=== PATIENT | male | born 1975 | race Caucasian/White ===

== ENCOUNTER 2018-01-01 15:07 | Inpatient (IN) | payer MEDICAID ==
[~2018-01-01] VITALS: Ht 170.2 cm; Wt 84.7 kg
[2018-01-01] MEDS ORDERED: SODIUM CHLORIDE FLUSH 10ML SYR IVF ONE (15:30)
[2018-01-01 15:54] LABS: BASOPHILS # (AUTO) 0.02 x10^3/uL (0-0.1); BASOPHILS % (AUTO) 0 % (0-1); EOSINOPHILS # (AUTO) 0.38 x10^3/uL (0-0.4); EOSINOPHILS % (AUTO) 4 % (1-7); LYMPHOCYTES # (AUTO) 2.55 x10^3/uL (1-3.4); LYMPHOCYTES % (AUTO) 24 % (22-44); MD NO; MEAN CORPUSCULAR HEMOGLOBIN 30.7 pg (27.5-34.5); MEAN CORPUSCULAR HGB CONC 34.6 g/dL (33.2-36.2); MEAN CORPUSCULAR VOLUME 88.9 fL (81-97); MEAN PLATELET VOLUME 7.8 fL (7.4-10.4); MONOCYTES # (AUTO) 0.74 x10^3/uL (0.2-0.8); MONOCYTES % (AUTO) 7 % (2-9); NEUTROPHILS # (AUTO) 7.12 x10^3/uL (1.8-6.8); NEUTROPHILS % (AUTO) 66 % (42-75); PLATELET COUNT 378 x10^3/uL (130-400); RED BLOOD COUNT 5.31 x10^6/uL (4.38-5.82); RED CELL DISTRIBUTION WIDTH 13.7 % (9.4-14.8)
[2018-01-01 16:05] LABS: ALBUMIN 4.1 g/dL (3.4-5.0); ANION GAP 8 mmol/L (5-15); CHLORIDE 106 mmol/L (98-107); CREATININE 1.14 mg/dL (0.7-1.3)
[2018-01-01 16:19] LABS: TROPONIN I 0.125 ng/mL (0.000-0.045)
[2018-01-01] MEDS ORDERED: ASPIRIN 81 MG TABLET CHEW ONE (16:31)
[2018-01-01] MEDS ORDERED: LISI40TA PO (16:43)
[2018-01-01] MEDS ORDERED: METOPROLOL 1 MG/ML, 5ML IVPush PRN (17:00)
[2018-01-01] MEDS ORDERED: ASPIRIN 81 MG TABLET CHEW PO ONE (17:00)
[2018-01-01] MEDS ORDERED: ONDANSETRON ODT 4 MG PO PRN (17:30)
[2018-01-01] MEDS ORDERED: ONDANSETRON 2MG/ML, 2ML IVPush PRN (17:30)
[2018-01-01] MEDS ORDERED: HYDROcodone/APAP 5/325 TABLET PO PRN (17:30)
[2018-01-01] MEDS ORDERED: POLYETHYLENE GLYCOL 17 GM PACKET PO PRN (17:30)
[2018-01-01] MEDS ORDERED: LABETALOL 5MG/ML, 20ML IVPush PRN (17:30)
[2018-01-01] MEDS ORDERED: METOPROLOL 1 MG/ML, 5ML ONE (17:52)
[2018-01-01] MEDS ORDERED: ASPIRIN 325 MG TABLET EC PO ONE (18:00)
[2018-01-01 18:09] LABS: FREE T4 (FREE THYROXINE) 1.03 ng/dL (0.76-1.46); THYROID STIMULATING HORMONE 1.82 mIU/L (0.358-3.740)
[2018-01-01] MEDS ORDERED: ENOXAPARIN 40 MG/0.4 ML ONE (19:28)
[2018-01-01] MEDS ORDERED: AMLODIPINE 5 MG TABLET ONE (19:28)
[2018-01-01] MEDS: AMLODIPINE 5 MG TABLET PO SCH (20:10)
[2018-01-01] MEDS: ENOXAPARIN 40 MG/0.4 ML SQ SCH (20:10)
[2018-01-01] MEDS: CHLORTHALIDONE 25 MG TABLET PO SCH (20:10)
[2018-01-01 21:19] VITALS: BP 173/113
[2018-01-01] MEDS: ENALAPRILAT 1.25 MG/ML, 2ML IVPush PRN ×2 (21:22→21:41)
[2018-01-01 21:35] VITALS: BP 170/105
[2018-01-01 21:36] VITALS: BP 170/105
[2018-01-01 22:15] VITALS: BP 171/96
[2018-01-01 23:19] LABS: TROPONIN I 0.121 ng/mL (0.000-0.045)
[2018-01-02 01:33] VITALS: BP 111/70
[2018-01-02] MEDS: ASPIRIN 81 MG TABLET EC PO SCH (04:59)
[2018-01-02 05:34] LABS: ALANINE AMINOTRANSFERASE 30 U/L (12-78); ALBUMIN 3.8 g/dL (3.4-5.0); ANION GAP 7 mmol/L (5-15); CALCIUM 8.9 mg/dL (8.5-10.1); CHLORIDE 107 mmol/L (98-107)
[2018-01-02 05:37] LABS: ALKALINE PHOSPHATASE 70 U/L (45-117); BILIRUBIN,TOTAL 0.5 mg/dL (0.2-1.0); TOTAL PROTEIN 8.1 g/dL (6.4-8.2)
[2018-01-02 07:18] LABS: TROPONIN I 0.113 ng/mL (0.000-0.045)
[2018-01-02 08:30] VITALS: BP 145/91
[2018-01-02] MEDS: SENNA/DOCUSATE TABLET PO SCH ×2 (09:00→10:54)
[2018-01-02] MEDS: CHLORTHALIDONE 25 MG TABLET PO SCH (10:54)
[2018-01-02] MEDS: AMLODIPINE 5 MG TABLET PO SCH ×2 (10:54→20:33)
[2018-01-02] MEDS: NICOTINE 7 MG/24 HR PATCH.TD24 TD SCH (10:55)
[2018-01-02] MEDS: LISINOPRIL 20 MG TABLET PO SCH (10:55)
[2018-01-02] MEDS ORDERED: REGADENOSON 0.4 MG/5 ML SYRINGE ONE (11:24)
[2018-01-02 15:54] VITALS: BP 166/101
[2018-01-02 17:09] VITALS: BP 162/97
[2018-01-02] MEDS: ENOXAPARIN 40 MG/0.4 ML SQ SCH (18:05)
[2018-01-02 18:42] VITALS: BP 167/95
[2018-01-03 04:00] VITALS: BP 129/92
[2018-01-03] MEDS: ASPIRIN 81 MG TABLET EC PO SCH (05:13)
[2018-01-03 05:21] LABS: ANION GAP 9 mmol/L (5-15); CALCIUM 8.9 mg/dL (8.5-10.1); CHLORIDE 104 mmol/L (98-107); CREATININE 1.11 mg/dL (0.7-1.3)
[2018-01-03 05:28] LABS: BASOPHILS # (AUTO) 0.05 x10^3/uL (0-0.1); BASOPHILS % (AUTO) 1 % (0-1); EOSINOPHILS # (AUTO) 0.54 x10^3/uL (0-0.4); EOSINOPHILS % (AUTO) 6 % (1-7); LYMPHOCYTES # (AUTO) 3.05 x10^3/uL (1-3.4); LYMPHOCYTES % (AUTO) 31 % (22-44); MD NO; MEAN CORPUSCULAR HEMOGLOBIN 30.5 pg (27.5-34.5); MEAN CORPUSCULAR VOLUME 89.7 fL (81-97); MONOCYTES # (AUTO) 0.94 x10^3/uL (0.2-0.8); MONOCYTES % (AUTO) 10 % (2-9); NEUTROPHILS % (AUTO) 54 % (42-75); PLATELET COUNT 351 x10^3/uL (130-400); RED CELL DISTRIBUTION WIDTH 13.9 % (9.4-14.8)
[2018-01-03 06:40] VITALS: BP 144/91
[2018-01-03] MEDS: CHLORTHALIDONE 25 MG TABLET PO SCH (08:51)
[2018-01-03] MEDS: AMLODIPINE 5 MG TABLET PO SCH ×2 (08:51→20:15)
[2018-01-03] MEDS: NICOTINE 7 MG/24 HR PATCH.TD24 TD SCH (08:52)
[2018-01-03] MEDS: SENNA/DOCUSATE TABLET PO SCH ×2 (08:52→08:53)
[2018-01-03] MEDS: LISINOPRIL 20 MG TABLET PO SCH (08:52)
[2018-01-03 12:45] VITALS: BP 152/94
[2018-01-03] MEDS: ENOXAPARIN 40 MG/0.4 ML SQ SCH (17:58)
[2018-01-03] MEDS ORDERED: RANI150C PO (18:01)
[2018-01-03 19:40] VITALS: BP 128/82
[2018-01-04 00:51] VITALS: BP 146/91
[2018-01-04] MEDS: ASPIRIN 81 MG TABLET EC PO SCH (05:59)
[2018-01-04] MEDS: SENNA/DOCUSATE TABLET PO SCH (07:52)
[2018-01-04] MEDS: AMLODIPINE 5 MG TABLET PO SCH (07:59)
[2018-01-04] MEDS: CHLORTHALIDONE 25 MG TABLET PO SCH (07:59)
[2018-01-04] MEDS: LISINOPRIL 20 MG TABLET PO SCH (07:59)
[2018-01-04] MEDS: NICOTINE 7 MG/24 HR PATCH.TD24 TD SCH (07:59)
[2018-01-04 08:10] VITALS: BP 143/89
[2018-01-04] MEDS ORDERED: AMLO5TAB2 PO (09:24)
[2018-01-04] MEDS ORDERED: CHLO25TA PO (09:24)
[2018-01-04] MEDS ORDERED: FLU VACC QS2017-18 (36MOS+) UP/PF 0.5 ML IM-VACC ONE (10:30)
[2018-01-04] MEDS ORDERED: PNEUMOCOCCAL 23 VACCINE IM-VACC ONE (10:30)
== END 2018-01-04 11:19 | disposition home or self-care (01) | DRG 282 ==
LOC: ED 17:04 → EDIP 17:05 → ED 17:54 → 5SO 20:50
PROVIDERS: ADMIT Hospitalist; ATTEND Hospitalist
DX: I21.4 Non-ST elevation (NSTEMI) myocardial infarction (principal); I70.1 Atherosclerosis of renal artery; D72.829 Elevated white blood cell count, unspecified; F12.90 Cannabis use, unspecified, uncomplicated; F17.200 Nicotine dependence, unspecified, uncomplicated; H93.19 Tinnitus, unspecified ear; I12.9 Hypertensive chronic kidney disease with stage 1 through stage 4 chronic kidney disease, or unspecified chronic kidney disease; I16.0 Hypertensive urgency; K21.9 Gastro-esophageal reflux disease without esophagitis; L40.9 Psoriasis, unspecified; Z79.899 Other long term (current) drug therapy; Z80.0 Family history of malignant neoplasm of digestive organs; Z82.49 Family history of ischemic heart disease and other diseases of the circulatory system; Z83.3 Family history of diabetes mellitus; R73.9 Hyperglycemia, unspecified; I24.8 Other forms of acute ischemic heart disease; N18.2 Chronic kidney disease, stage 2 (mild); R00.1 Bradycardia, unspecified
CPT/HCPCS: 36415; 71046; 78452; 80048; 80053; 82040; 84439; 84443; 84484; 85025; 90686; 90732; 93005; 93017; 93306; 93975; 96374; J1650; J2785; A9502; C9898

== ENCOUNTER 2019-03-25 18:46 | Emergency (ER) | payer MEDICAID ==
[~2019-03-25] VITALS: Ht 177.8 cm; Wt 99.7 kg
[~2019-03-25 18:46] MED LIST: AMLO-150 PO; CHLO25TA PO; LISI40TA PO; RANI150C PO
[2019-03-25 18:56] VITALS: BP 171/105
[2019-03-25] MEDS ORDERED: DEXAMETHASONE 4 MG TABLET ONE (19:23)
[2019-03-25] MEDS ORDERED: HYDROcodone/APAP 5/325 TABLET ONE (19:23)
[2019-03-25] MEDS ORDERED: HYDROcodone/APAP 5/325 TABLET PO ONE (19:30)
[2019-03-25] MEDS ORDERED: DEXAMETHASONE 4 MG TABLET PO ONE (19:30)
== END 2019-03-25 19:32 | disposition home or self-care (01) ==
LOC: ED 19:26
DX: H65.01 Acute serous otitis media, right ear (principal); I10 Essential (primary) hypertension
CPT/HCPCS: 99283

== ENCOUNTER 2020-09-11 17:26 | Emergency (ER) | payer MEDICAID ==
[~2020-09-11] VITALS: Ht 170.2 cm; Wt 107.5 kg
[2020-09-11 17:48] VITALS: BP 161/87
== END 2020-09-11 18:16 | disposition home or self-care (01) ==
LOC: ED 18:00
DX: H60.502 Unspecified acute noninfective otitis externa, left ear (principal); I10 Essential (primary) hypertension; Z87.891 Personal history of nicotine dependence
CPT/HCPCS: 99283

== ENCOUNTER 2021-05-14 15:16 | Emergency (ER) | payer MEDICAID ==
[~2021-05-14] VITALS: Ht 170.2 cm; Wt 108.3 kg
[~2021-05-14 15:16] MED LIST changes: -LISI40TA PO; +LISI40TA9 PO
[2021-05-14 15:31] VITALS: BP 145/98
== END 2021-05-14 16:47 | disposition home or self-care (01) ==
LOC: ED 15:46
DX: H65.02 Acute serous otitis media, left ear (principal); H92.02 Otalgia, left ear; F17.210 Nicotine dependence, cigarettes, uncomplicated; I10 Essential (primary) hypertension
CPT/HCPCS: 99406